=== PATIENT | male | born 1930 | race Caucasian/White ===

== ENCOUNTER 2018-04-13 15:01 | Observation (INO) ==
--- NOTE | 2018-04-13 15:12 | Emergency Department Note ---
Disposition Clinical Impression: Dementia, CHF exacerbation, Elevated troponin Disposition: Admitted As Inpatient Condition: Fair General Adult HPI - General Stated complaint: altered mental status Time Seen by Provider: 04/13/18 15:03 Source: family Mode of arrival: EMS Limitations: altered mental status Nursing Notes Reviewed: Yes Vital Signs Reviewed: Yes - History of Present Illness HPI Narrative: Patient presents with family members who say when he becomes agitated his oxygen level drops and he becomes combative. His pulse oximeter went down to 52 at home but if he stays calm his oxygen saturation is in the mid 90s. He was here 2 nights ago for similar complaint and sent home. According to the family thinks seem to be getting worse. The family gives no reports of fevers or chills nausea vomiting night sweats no specific shortness of breath. He has had a cough and a little bit of chest discomfort with his cough as of late. He is also bringing up some sputum as well it appears yellowish green Onset (ago): day(s) (several days) Location: other (altered mental status) Pain Severity: mild Quality: sharp (with cough) Consistency: intermittent Improves with: rest Worsens with: nothing Associated symptoms: Reports: denies other symptoms - Related Data Home Medications Medication Instructions Recorded Confirmed Cholecalciferol (D-3) [Vitamin D] 1,000 unit PO DAILY 02/26/17 04/13/18 Cyanocobalamin (B-12) [Vitamin B12] 1,000 mcg PO DAILY 02/26/17 04/13/18 Donepezil [Aricept] 5 mg PO DAILY 02/26/17 04/13/18 Albuterol Sulfate [Albuterol 2 puff IH QID PRN 09/28/17 04/13/18 Inhaler] Ipratropium/Albuterol Neb [Duoneb] 3 ml IH Q6HR PRN 03/18/18 04/13/18 Isosorbide MONOnitrate (24 HR) 30 mg PO DAILY 03/18/18 04/13/18 [Imdur] Melatonin [Melatin] 9 mg PO HS 03/18/18 04/13/18 Terazosin [Hytrin] 1 mg PO HS 03/18/18 04/13/18 Aspirin 325 mg PO DAILY 03/28/18 04/13/18 Previous Rx's Medication Instructions Recorded Budesonide/Formoterol 160/4.5 2 puff IH BIDR #1 inhaler 10/03/17 [Symbicort 160/4.5] Furosemide [Lasix] 20 mg PO BID 30 Days #60 tablet 03/24/18 Lisinopril [Zestril] 5 mg PO DAILY 30 Days #30 tablet 03/24/18 Metoprolol XL (24 HR) Succ [Toprol 50 mg PO DAILY 30 Days #30 03/24/18 Xl] tab.er.24h Cefdinir [Omnicef] 300 mg PO BID #16 capsule 04/04/18 Diltiazem CD (24hr) [Cardizem CD] 240 mg PO DAILY 30 Days #30 04/05/18 cap.er.24h Allergies Allergy/AdvReac Type Severity Reaction Status Date / Time No Known Allergies Allergy Verified 04/11/18 23:51 All systems ED: reviewed and negative except as stated. (per family) Review of Systems: As Per HPI Constitutional: Denies: fever, chills, weakness, weight change Eyes: Denies: eye pain, eye discharge, vision change ENT ED: Denies: ear pain, throat pain, dental pain, hearing loss, epistaxis, congestion, dysphagia Cardiovascular: Reports: as per HPI, chest pain (with cough). Denies: palpitations, dyspnea on exertion, edema, syncope Respiratory: Reports: as per HPI, cough. Denies: dyspnea, wheezes, hemoptysis, stridor Gastrointestinal: Denies: abdominal pain, nausea, vomiting, diarrhea, constipa tion, hematemesis, melena, hematochezia Genitourinary: Denies: urgency, dysuria, frequency, hematuria Musculoskeletal: Denies: back pain, neck pain, arthralgia, myalgia Integumentary: Denies: rash, abrasion, lesions Neurological: Denies: headache, weakness, numbness, paresthesias, confusion, abnormal gait, vertigo Psychiatric: Reports: as per HPI, anxiety. Denies: depression, suicidal thoughts, homicidal thoughts, auditory hallucinations, visual hallucinations Endocrine: Denies: fatigue Hematological/Lymphatic: Denies: easy bleeding, easy bruising Allergic/Immunologic: Denies: facial swelling, urticaria Past Medical History - Past Medical History Attestation: Yes The following information was validated with the patient. Source: patient, nursing notes reviewed Medical history: Reports: atrial fibrillation, CHF, CVA, dementia, hypertension Surgical history: Reports: no surgical history Psychiatric history: Reports: no psych history - Social History Smoking Status: Former smoker Smokeless Tobacco Status: No Alcohol use: Reports: none Drug use: Reports: none Physical Exam - General Limitations: no limitations General appearance: alert, in no apparent distress - Head Head exam: atraumatic, normocephalic, normal inspection - Eye Eye exam: Present: normal appearance, PERRL, EOMI - ENT ENT exam: normal exam, normal oropharynx, mucous membranes moist - Neck Neck exam: Present: normal inspection, full ROM, trachea midline - Chest Chest inspection: Present: normal inspection, symmetric chest wall rise - Respiratory Respiratory exam: Present: normal lung sounds bilaterally - Cardiovascular Cardiovascular exam: Present: regular rate, normal rhythm, normal heart sounds - Abdominal Exam Abdominal exam: Present: soft, Non-Tender. Absent: tenderness, distention, guarding, rebound, rigidity - Extremities Exam Extremities exam: Present: normal inspection, full ROM. Absent: tenderness, pedal edema - Back Exam Back exam: Present: normal inspection - Neurological Exam Neurological exam: Present: alert - Psychiatric Psychiatric exam: Present: normal affect, normal mood, agitated (at times) - Skin Skin exam: Present: warm, dry, intact Course Vital Signs Temperature 98.6 F 04/13/18 15:06 Pulse Rate 57 04/13/18 15:06 Respiratory Rate 18 04/13/18 15:06 Blood Pressure 84/52 04/13/18 15:06 O2 Sat by Pulse Oximetry 91 04/13/18 15:06 Temperature 98.6 F 04/13/18 15:06 Pulse Rate 57 04/13/18 15:06 Respiratory Rate 22 04/13/18 18:13 Blood Pressure 111/64 04/13/18 18:13 O2 Sat by Pulse Oximetry 91 04/13/18 15:06 Oxygen Delivery Oxygen Delivery Room Air Medical Decision Making - MDM Narrative Medical decision making narrative: I reviewed the patient's medication list Patient has mild CHF on his x-ray. His lactic acid is slightly possible I will not give him fluids because of his vascular congestion. Case was discussed with Dr. Shannon who is graciously accepted admission - Lab Data Lab results reviewed: Yes I reviewed the patient's lab results. Result diagrams: 04/13/18 16:20 04/13/18 16:20 Lab Results 04/13/18 04/13/18 04/13/18 Range/Units 16:20 16:20 16:20 WBC 6.4 (4.3-11.1) K/mcL RBC 3.62 L (4.19-5.50) M/mcL Hgb 10.8 L (12.9-16.9) g/dL Hct 36.6 L (37.5-50.1) % MCV 101.1 H (83.0-100.0) fL MCH 29.8 (28.0-33.3) pg MCHC 29.5 L (31.6-35.5) g/dL RDW 13.7 (11.5-14.5) % Plt Count 177 (140-400) K/mcL MPV 10.6 (9.4-12.4) fL Immature Gran % 0.8 (0-4) % Seg Neutrophils % 75.3 % Lymphocytes % 12.8 % Monocytes % 7.3 % Eosinophils % 3.3 % Basophils % 0.5 % Neutrophils # 4.8 (1.6-8.9) K/mcL Lymphocytes # 0.8 (0.6-4.6) K/mcL Monocytes # 0.5 (0.0-1.3) K/mcL Eosinophils # 0.2 (0.0-0.6) K/mcL Basophils # 0.0 (0.0-0.2) K/mcL Sodium 143 (136-145) mEq/L Potassium 4.4 (3.5-5.1) mEq/L Chloride 87 L (98-107) mEq/L Carbon Dioxide > 45 H* (23-29) mEq/L BUN 24 H (8-23) mg/dL Creatinine 0.95 (0.70-1.30) mg/dL Est GFR ( Amer) > 60 (> 60) Est GFR (Non-Af Amer) > 60 (> 60) BUN/Creatinine Ratio 25 (6-26) Glucose 104 (70-105) mg/dL Calculated Osmolality 300 (280-300) Lactic Acid 2.3 H (0.5-2.2) mmol/L Calcium 10.0 (8.6-10.3) mg/dL Total Bilirubin 0.7 (0.3-1.0) mg/dL AST 17 (13-39) Units/L ALT 19 (7-52) Units/L Alkaline Phosphatase 60 (34-104) Units/L Troponin I 0.24 H* (< 0.04) ng/mL Serum Total Protein 6.3 L (6.4-8.9) g/dL Albumin 3.8 (3.5-5.7) g/dL Globulin 2.5 (2.4-3.5) g/dL Albumin/Globulin Ratio 1.5 (1.1-2.2) Urine Color (Yellow) Urine Clarity (Clear) Urine pH (5.0-8.0) pH Units Ur Specific [place] (1.010-1.025) Urine Protein (Neg-Trace) mg/dL Urine Glucose (UA) (Normal) mg/dL Urine Ketones (Negative) mg/dL Urine Blood (Negative) Urine Nitrite (Negative) Urine Bilirubin (Negative) Urine Urobilinogen (Normal) mg/dL Ur Leukocyte Esterase (Negative) Urine Microscopic RBC (0-3) per hpf Urine Microscopic WBC (0-3) per hpf Urine Bacteria (None-Few) per hpf Ur Culture Indicated? (NO) 04/13/18 Range/Units 17:00 WBC (4.3-11.1) K/mcL RBC (4.19-5.50) M/mcL Hgb (12.9-16.9) g/dL Hct (37.5-50.1) % MCV (83.0-100.0) fL MCH (28.0-33.3) pg MCHC (31.6-35.5) g/dL RDW (11.5-14.5) % Plt Count (140-400) K/mcL MPV (9.4-12.4) fL Immature Gran % (0-4) % Seg Neutrophils % % Lymphocytes % % Monocytes % % Eosinophils % % Basophils % % Neutrophils # (1.6-8.9) K/mcL Lymphocytes # (0.6-4.6) K/mcL Monocytes # (0.0-1.3) K/mcL Eosinophils # (0.0-0.6) K/mcL Basophils # (0.0-0.2) K/mcL Sodium (136-145) mEq/L Potassium (3.5-5.1) mEq/L Chloride (98-107) mEq/L Carbon Dioxide (23-29) mEq/L BUN (8-23) mg/dL Creatinine (0.70-1.30) mg/dL Est GFR ( Amer) (> 60) Est GFR (Non-Af Amer) (> 60) BUN/Creatinine Ratio (6-26) Glucose (70-105) mg/dL Calculated Osmolality (280-300) Lactic Acid (0.5-2.2) mmol/L Calcium (8.6-10.3) mg/dL Total Bilirubin (0.3-1.0) mg/dL AST (13-39) Units/L ALT (7-52) Units/L Alkaline Phosphatase (34-104) Units/L Troponin I (< 0.04) ng/mL Serum Total Protein (6.4-8.9) g/dL Albumin (3.5-5.7) g/dL Globulin (2.4-3.5) g/dL Albumin/Globulin Ratio (1.1-2.2) Urine Color Yellow (Yellow) Urine Clarity Clear (Clear) Urine pH 7.5 (5.0-8.0) pH Units Ur Specific [place] 1.015 (1.010-1.025) Urine Protein Trace (Neg-Trace) mg/dL Urine Glucose (UA) Normal (Normal) mg/dL Urine Ketones Negative (Negative) mg/dL Urine Blood Negative (Negative) Urine Nitrite Negative (Negative) Urine Bilirubin Negative (Negative) Urine Urobilinogen Normal (Normal) mg/dL Ur Leukocyte Esterase Trace H (Negative) Urine Microscopic RBC 0-3 (0-3) per hpf Urine Microscopic WBC 0-3 (0-3) per hpf Urine Bacteria Few (None-Few) per hpf Ur Culture Indicated? YES A (NO) - Radiology Data Radiology results reviewed: Yes I reviewed the patient's radiology results. - EKG Data EKG #1 EKG attestation: Yes I reviewed and interpreted this EKG. EKG results narrative: EKG shows sinus bradycardia with a rate of 53 bpm right bundle-branch pattern VT interval is 181 ms. QRS duration 138 ms. QT interval 449 ms. QTc interval 433 ms. R axis of [address] elevation is appreciated
[2018-04-13 16:29] LABS: Basophils % 0.5 %; Eosinophils # 0.2 K/mcL (0.0-0.6); Eosinophils % 3.3 %; Hematocrit 36.6 % (37.5-50.1); Hemoglobin 10.8 g/dL (12.9-16.9); Immature Granulocytes % 0.8 % (0-4); Lymphocytes # 0.8 K/mcL (0.6-4.6); Lymphocytes % 12.8 %; Mean Corpuscular HGB Conc 29.5 g/dL (31.6-35.5); Mean Corpuscular Hemoglobin 29.8 pg (28.0-33.3); Mean Corpuscular Volume 101.1 fL (83.0-100.0); Mean Platelet Volume 10.6 fL (9.4-12.4); Monocytes # 0.5 K/mcL (0.0-1.3); Monocytes % 7.3 %; Neutrophils # 4.8 K/mcL (1.6-8.9); Platelet Count 177 K/mcL (140-400); Red Blood Count 3.62 M/mcL (4.19-5.50); Red Cell Distribution Width 13.7 % (11.5-14.5); Segmented Neutrophils % 75.3 %
[2018-04-13 16:59] LABS: Alanine Aminotransferase 19 Units/L (7-52); Albumin 3.8 g/dL (3.5-5.7); Albumin/Globulin Ratio 1.5 (1.1-2.2); Alkaline Phosphatase 60 Units/L (34-104); Aspartate Amino Transferase 17 Units/L (13-39); BUN/Creatinine Ratio 25 (6-26); Bilirubin,Total 0.7 mg/dL (0.3-1.0); Blood Urea Nitrogen 24 mg/dL (8-23); Chloride 87 mEq/L (98-107); Globulin 2.5 g/dL (2.4-3.5); Glucose 104 mg/dL (70-105); Osmolality,Calculated 300 (280-300); Potassium 4.4 mEq/L (3.5-5.1); Sodium 143 mEq/L (136-145); Total Protein 6.3 g/dL (6.4-8.9); Troponin I 0.24 ng/mL (< 0.04); eGFR For Non-African Americans > 60 (> 60)
[2018-04-13 17:06] LABS: Bilirubin,Urine Negative (Negative); Blood,Urine Negative (Negative); Clarity,Urine Clear (Clear); Color,Urine Yellow (Yellow); Glucose,Urine (UA) Normal (Normal); Ketones,Urine Negative (Negative); Leukocyte Esterase,Urine Trace (Negative); Nitrite,Urine Negative (Negative); PH,Urine 7.5 pH Units (5.0-8.0); Protein,Urine Trace mg/dL (Neg-Trace); Specific Gravity,Urine 1.015 (1.010-1.025); Urobilinogen,Urine Normal (Normal)
[2018-04-13 17:11] LABS: WBC,Urine 0-3 per hpf (0-3)
[2018-04-13 17:12] LABS: Bacteria,Urine Few per hpf (None-Few); RBC,Urine 0-3 per hpf (0-3)
[2018-04-13] MEDS ORDERED: Aspirin 81 MG TAB.CHEW PO STA (17:12)
[2018-04-13] MEDS ORDERED: Furosemide 20 MG/2 ML VIAL IVP ONE (17:26)
[2018-04-13] MEDS ORDERED: *HR* LORazepam 0.5 MG TABLET PO ONE (17:49)
[2018-04-13] MEDS ORDERED: *HR* LORazepam 0.5 MG TABLET ONE (17:55)
[2018-04-13] MEDS ORDERED: Naloxone 0.4 MG/ML INJ IVP PRN (18:55)
[2018-04-13] MEDS ORDERED: Ipratropium/Albuterol Neb 3 ML IH PRN (18:55)
[2018-04-13] MEDS ORDERED: Cefdinir 300 MG CAPSULE PO SCH (21:00)
[2018-04-13] MEDS ORDERED: Furosemide 20 MG TABLET PO SCH (21:00)
[2018-04-13] MEDS ORDERED: Melatonin 3 MG TABLET PO SCH (21:00)
[2018-04-13] MEDS: Budesonide/Formoterol 160/4.5 1 PUFF INH IH SCH (23:20)
[2018-04-14 05:47] LABS: Basophils % 0.5 %; Eosinophils # 0.3 K/mcL (0.0-0.6); Eosinophils % 4.5 %; Hematocrit 31.7 % (37.5-50.1); Hemoglobin 9.5 g/dL (12.9-16.9); Immature Granulocytes % 0.5 % (0-4); Lymphocytes # 0.9 K/mcL (0.6-4.6); Lymphocytes % 15.8 %; Mean Corpuscular Hemoglobin 29.7 pg (28.0-33.3); Mean Corpuscular Volume 99.1 fL (83.0-100.0); Mean Platelet Volume 11.4 fL (9.4-12.4); Monocytes # 0.4 K/mcL (0.0-1.3); Monocytes % 7.9 %; Neutrophils # 3.9 K/mcL (1.6-8.9); Platelet Count 148 K/mcL (140-400); Red Cell Distribution Width 13.7 % (11.5-14.5); Segmented Neutrophils % 70.8 %
[2018-04-14 06:17] LABS: BUN/Creatinine Ratio 27 (6-26); Blood Urea Nitrogen 25 mg/dL (8-23); Calcium 9.1 mg/dL (8.6-10.3); Carbon Dioxide 43 mEq/L (23-29); Chloride 89 mEq/L (98-107); Glucose 107 mg/dL (70-105); Osmolality,Calculated 291 (280-300); Potassium 4.3 mEq/L (3.5-5.1); Sodium 138 mEq/L (136-145); eGFR For Non-African Americans > 60 (> 60)
[2018-04-14 08:58] LABS: Carbon Dioxide > 45 mEq/L (23-29)
[2018-04-14] MEDS ORDERED: Cholecalciferol (D-3) 1,000 UNIT TABLET PO SCH (09:00)
[2018-04-14] MEDS ORDERED: Diltiazem CD (24hr) 240 MG CAPSULE PO SCH (09:00)
[2018-04-14] MEDS ORDERED: Cyanocobalamin (B-12) 1,000 MCG TABLET PO SCH (09:00)
[2018-04-14] MEDS ORDERED: Isosorbide MONOnitrate (24 HR) 30 MG TAB.ER.24H PO SCH (09:00)
[2018-04-14] MEDS ORDERED: Aspirin 325 MG TABLET PO SCH (09:00)
[2018-04-14] MEDS ORDERED: Metoprolol XL (24 HR) Succ 50 MG TAB.ER.24H PO SCH (09:00)
[2018-04-14 11:02] VITALS: BP 135/54
[2018-04-14] MEDS: Budesonide/Formoterol 160/4.5 1 PUFF INH IH SCH (11:14)
--- NOTE | 2018-04-14 11:57 | Physician Discharge Referral ---
Addendum entered and electronically signed by Marlon Shannon MD 04/14/18 12:16: Addendum entered and electronically signed by Kaleigh Schulz APN 04/14/18 12:06: CHF- refer to hospice, continue home meds. 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 For more information, call the [place] Tobacco Quit Line at 9-987-HNDC-NOW. - Diet/Nutrition Diet/Nutrition Orders: Regular - Activity Activity Orders: Bedrest - Services Needed Following services are medically necessary services: Nursing - Transfer Medications Home Medications: Cholecalciferol (D-3) [Vitamin D] 1,000 unit PO DAILY 02/26/17 [History] Cyanocobalamin (B-12) [Vitamin B12] 1,000 mcg PO DAILY 02/26/17 [History] Donepezil [Aricept] 5 mg PO DAILY 02/26/17 [History] Albuterol Sulfate [Albuterol Inhaler] 2 puff IH QID PRN 09/28/17 [History] Budesonide/Formoterol 160/4.5 [Symbicort 160/4.5] 2 puff IH BIDR #1 inhaler 10/03/17 [Rx] Ipratropium/Albuterol Neb [Duoneb] 3 ml IH Q6HR PRN 03/18/18 [History] Isosorbide MONOnitrate (24 HR) [Imdur] 30 mg PO DAILY 03/18/18 [History] Melatonin [Melatin] 9 mg PO HS 03/18/18 [History] Terazosin [Hytrin] 1 mg PO HS 03/18/18 [History] Furosemide [Lasix] 20 mg PO BID 30 Days #60 tablet 03/24/18 [Rx] Lisinopril [Zestril] 5 mg PO DAILY 30 Days #30 tablet 03/24/18 [Rx] Metoprolol XL (24 HR) Succ [Toprol Xl] 50 mg PO DAILY 30 Days #30 tab.er.24h 03/24/18 [Rx] Aspirin 325 mg PO DAILY 03/28/18 [History] Cefdinir [Omnicef] 300 mg PO BID #16 capsule 04/04/18 [Rx] Diltiazem CD (24hr) [Cardizem CD] 240 mg PO DAILY 30 Days #30 cap.er.24h 04/05/18 [Rx] Allergies/Adverse Reactions: Allergy/AdvReac Type Severity Reaction Status Date / Time No Known Allergies Allergy Verified 04/11/18 23:51 Certification: Further, I certify that my clinical findings support that this patient is homebound (i.e. absences from home require considerable and taxing effort and are for medical reasons or mandaeism services or infrequently or short duration when for other reasons) because: Homebound Reason: Patient requires assistance of a person or device to safely leave home, Leaving home requires considerable and taxing effort due to condition, Altered mental status requiring supervision when leaving home Attestation: My signature below is to certify that this patient is under my care and that I, or nurse practitioner, or a physician's psychiatric assistant working with me, has a [id number] encounter with this patient.
--- NOTE | 2018-04-14 12:00 | Internal Med History&Physical ---
Date of Encounter: 04/14/18 Time of Encounter: 11:55 Assessment and Plan (1) Acute and chronic respiratory failure with hypercapnia Current visit: No Status: Acute This is ongoing and at his baseline. Ativan will be used in low dose, given his referral to hospice. He was admitted with a diagnosis of heart failure but multiple attempts to enter will not allow this in the document because of the computer system I do not feel that he is any worse heart failure situation then during his last admission, anyway, and suspect that this is related to his not taking his home medications. We will try to optimize home meds with liquids which he will take. (2) Anxiety Current visit: No Status: Acute It is hard to say whether or not this is a primary problem or if somehow pain induced as he is unable to localize. (3) GERD (gastroesophageal reflux disease) Current visit: No Status: Chronic Qualifiers: Esophagitis presence: esophagitis presence not specified Qualified Code(s): K21.9 - Gastro-esophageal reflux disease without esophagitis (4) Dementia Current visit: No Status: Chronic Chronic and end-stage. Qualifiers: Dementia type: Alzheimer's disease Alzheimer's disease onset: unspecified onset Dementia behavioral disturbance: without behavioral disturbance Qualified Code(s): G30.9 - Alzheimer's disease, unspecified; F02.80 - Dementia in other diseases classified elsewhere without behavioral disturbance (5) Hypertension Current visit: No Status: Chronic Actually on multiple medications has been relatively hypotensive. Qualifiers: Hypertension type: essential hypertension Qualified Code(s): I10 - Essential (primary) hypertension (6) BPH (benign prostatic hyperplasia) Current visit: No Status: Chronic Apparently, stable. Qualifiers: Lower urinary tract symptom presence: unspecified whether lower urinary tract symptoms present Qualified Code(s): N40.0 - Benign prostatic hyperplasia without lower urinary tract symptoms (7) UTI (urinary tract infection) Current visit: No Status: Acute Urine culture has been sent but results are pending. Qualifiers: Urinary tract infection type: site unspecified Hematuria presence: without hematuria Qualified Code(s): N39.0 - Urinary tract infection, site not specified Internal Medicine - H&P: HPI Chief complaint: Mental status change; heart failure Admitted From: Home Plans for Post Hospital Care: Hospice - Medical Facility History of present illness: Mr. Pack is a 88 year old male known to me who was having difficulty with agitation and breathing. Because of ongoing cough and refusing to take medicines, he was brought for the second time in 3 days to the emergency room. They admitted him with a diagnosis of congestive heart failure but he has multiple problems as documented before during his last admission. Family wants to keep him at hospice but there is some disagreement among his sisters. I spoke with Shwetha Pack and granddaughter Mone Pack, who both 1want him to be on hospice. The patient lives with them and they are primary caregivers. They have spoken with palliative nurse at [facility] and with home health care about switching him to hospice. 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 They agree with making him a DO NOT INTUBATE, no arrest and DNR CC only. Since he has been here he has complained of pain but is not able to localize, is not able to respond to questions about his recent past, etc. He is oriented 1 (self), only. I was able to speak with social service who will arrange hospice and can have this set up, today. Nursing notes that he desaturates frequently and that they must get saturation centrally, on his forehead, because of peripheral hypoperfusion. Past Med Surg Social Fam HX - Past Medical History Source: old records reviewed Medical history: atrial fibrillation, CHF, CVA, dementia, hypertension Psychiatric history: no psych history - Past Surgical History Surgical History: no surgical history - Social History Smoking Status: Former smoker Smokeless Tobacco Status: No Alcohol use: none Drug use: none - Family History Mother Hx Family Cancer: Yes Internal Medicine - H&P: Meds Cholecalciferol (D-3) [Vitamin D] 1,000 unit PO DAILY 02/26/17 [History] Cyanocobalamin (B-12) [Vitamin B12] 1,000 mcg PO DAILY 02/26/17 [History] Donepezil [Aricept] 5 mg PO DAILY 02/26/17 [History] Albuterol Sulfate [Albuterol Inhaler] 2 puff IH QID PRN 09/28/17 [History] Budesonide/Formoterol 160/4.5 [Symbicort 160/4.5] 2 puff IH BIDR #1 inhaler 10/03/17 [Rx] Ipratropium/Albuterol Neb [Duoneb] 3 ml IH Q6HR PRN 03/18/18 [History] Isosorbide MONOnitrate (24 HR) [Imdur] 30 mg PO DAILY 03/18/18 [History] Melatonin [Melatin] 9 mg PO HS 03/18/18 [History] Terazosin [Hytrin] 1 mg PO HS 03/18/18 [History] Furosemide [Lasix] 20 mg PO BID 30 Days #60 tablet 03/24/18 [Rx] Lisinopril [Zestril] 5 mg PO DAILY 30 Days #30 tablet 03/24/18 [Rx] Metoprolol XL (24 HR) Succ [Toprol Xl] 50 mg PO DAILY 30 Days #30 tab.er.24h 03/24/18 [Rx] Aspirin 325 mg PO DAILY 03/28/18 [History] Cefdinir [Omnicef] 300 mg PO BID #16 capsule 04/04/18 [Rx] Diltiazem CD (24hr) [Cardizem CD] 240 mg PO DAILY 30 Days #30 cap.er.24h 04/05/18 [Rx] Allergy/AdvReac Type Severity Reaction Status Date / Time No Known Allergies Allergy Verified 04/11/18 23:51 All Systems PM: A 10-system review of systems was performed and is negative for pertinent findings except as documented above in the HPI. Review of systems: Not obtainable, because of his disorientation. - Constitutional Vitals: Temp Pulse Resp BP Pulse Ox 97.4 F L 88 40 135/54 88 04/14/18 10:59 04/14/18 10:59 04/14/18 10:59 04/14/18 10:59 04/14/18 10:59 Exam: Examination: (Except as mentioned above): General: In no apparent distress, obtunded and oriented 1, as above. Head: Atraumatic and normocephalic. Eyes: Extraocular muscles are intact, pupils equal round and reactive to light and accommodation. Sclerae anicteric. Ears: External ears are normal to inspection and hearing is grossly normal. Nose: Patent without lesion noted. Mouth: No intraoral lesions seen. Dentition is unremarkable. Neck: Supple with trachea midline. There is no thyromegaly or adenopathy and carotids are 2+ without bruit heard. Respiratory: No use of accessory muscles. Lungs have sonorous rhonchi and upper airway sounds, throughout. Normal airflow. Cardiovascular: Distant but irregularly irregular consistent with atrial fibrillation at a high rate. Abdomen: Bowel sounds are normal. No hepatosplenomegaly masses or tenderness. Extremities: No cyanosis clubbing or edema. He is slightly mottled in his feet but hands seem to be okay. Neurological: A and O 1. Cranial nerves II through XII are intact. No focal deficits and no abnormal movements or postures. Skin: Warm and non-diaphoretic with no lesions noted. Breasts, pelvic and rectal: Not examined. Internal Med - H&P Results - Labs CBC & Chem 7: 04/14/18 05:40 04/14/18 05:40 Labs: Short CBC 04/13/18 04/14/18 Range/Units 16:20 05:40 WBC 6.4 5.6 (4.3-11.1) K/mcL Hgb 10.8 L 9.5 L (12.9-16.9) g/dL Hct 36.6 L 31.7 L (37.5-50.1) % Plt Count 177 148 (140-400) K/mcL Neutrophils # 4.8 3.9 (1.6-8.9) K/mcL BMP 04/13/18 04/14/18 16:20 05:40 Sodium 143 138 Potassium 4.4 4.3 Chloride 87 L 89 L Carbon Dioxide > 45 H* 43 H* BUN 24 H 25 H Creatinine 0.95 0.94 Glucose 104 107 H Calcium 10.0 9.1 Cardiac Enzymes 04/13/18 04/14/18 Range/Units 16:20 00:48 Troponin I 0.24 H* 0.24 H* (< 0.04) ng/mL Liver Function 04/13/18 Range/Units 16:20 Total Bilirubin 0.7 (0.3-1.0) mg/dL AST 17 (13-39) Units/L ALT 19 (7-52) Units/L Alkaline Phosphatase 60 (34-104) Units/L Albumin 3.8 (3.5-5.7) g/dL Urine 04/13/18 Range/Units 17:00 Urine Color Yellow (Yellow) Urine Clarity Clear (Clear) Urine pH 7.5 (5.0-8.0) pH Units Ur Specific [place] 1.015 (1.010-1.025) Urine Protein Trace (Neg-Trace) mg/dL Urine Glucose (UA) Normal (Normal) mg/dL - Impressions ITS Impressions Chest X-Ray 04/13/18 15:09 IMPRESSION: Stable examination. Findings suggest edema and bilateral pleural effusions. Correlate clinical assessment. D/ / 04/13/2018 15:56:19 Benoit Yoon MD / stephanie Interpreting Provider: Benoit Yoon MD Head CT 04/13/18 15:09 IMPRESSION: No acute intracranial abnormality. D/ / Carlos Enrique Aggarwal MD / Carlos Enrique Aggarwal MD Interpreting Provider: Carlos Enrique Aggarwal MD Chest X-Ray 04/14/18 07:00 IMPRESSION: 1. No significant interval change of cardiomegaly with moderate to severe congestive heart failure. D/ / 04/14/2018 07:43:50 Juany Espinoza MD / timo Interpreting Provider: Juany Espinoza MD
--- NOTE | 2018-04-14 12:18 | Discharge Summary ---
Addendum entered and electronically signed by Marlon Shannon MD 04/14/18 13:53: I have personally performed a face to face evaluation on this patient. I have r eviewed and agree with the care plan. History and Exam by me shows: Nursing notes that patient complained of chest pain and I will prescribe morphine but his daughter, Meme, did not want him to have this. When I went into room 2 check on him, he totally denies chest pain or any pain. I spoke at length with Meme who states that I am simply interested in money and cannot answer her questions to her satisfaction. I told her that he did have mildly elevated troponins so I am not sure whether this represents a heart attack or whether this is chronic from his heart failure and COPD. She would like him to have catheterization and other evaluations. I told her that I had spoken at length to other family members including caregivers previously noted. When I told her I felt it would be mean to treat her father in the way she was asking she became angry and stated she would make sure that he got care from her and was taken to [facility] or some other hospital for care. I told her that was the right of her privilege but that other family members had to say, as well. I will also add that she was very belittling to the medical care that I was giving patient and insisted that he knew where he was, etc. I went and interviewed patient and he again did not know situation, location, or time. He knew who he was and had memory of family in terms of address which is more alert than he has been but still had poor insight and was disoriented 2 or 3, only oriented to person. Upon leaving the room, Meme again angrily states, "He knows exactly where he is." Original Note: Orders not resulted at time of discharge: Pending orders 04/13/18 16:20 Culture,Blood [BC] Stat 04/13/18 17:00 Culture,Urine [RM] Urgent Date of Encounter: 04/14/18 Time of Encounter: 12:16 - Discharge Diagnosis (1) Altered mental status Priority: Primary Status: Acute Comments: discharge to hospice Qualifiers: Altered mental status type: unspecified Qualified Code(s): R41.82 - Altered mental status, unspecified (2) CHF exacerbation Priority: Primary Status: Acute Comments: discharge to hospice. continue home meds. Qualifiers: Heart failure type: combined systolic and diastolic Qualified Code(s): I50.43 - Acute on chronic combined systolic (congestive) and diastolic (congestive) heart failure Hospital course: Mr. Pack is a 88 year old male here with acute on chronic CHF and mental status change. family agreeable to discharge to hospice care. Discharge discussed with: patient, family, nurse, social work - Time Spent with Patient Total time spent providing and/or coordinating discharge services: Less than 30 minutes - Discharge Medications Home Medications: Cholecalciferol (D-3) [Vitamin D] 1,000 unit PO DAILY 02/26/17 [History] Cyanocobalamin (B-12) [Vitamin B12] 1,000 mcg PO DAILY 02/26/17 [History] Donepezil [Aricept] 5 mg PO DAILY 02/26/17 [History] Albuterol Sulfate [Albuterol Inhaler] 2 puff IH QID PRN 09/28/17 [History] Budesonide/Formoterol 160/4.5 [Symbicort 160/4.5] 2 puff IH BIDR #1 inhaler 10/03/17 [Rx] Ipratropium/Albuterol Neb [Duoneb] 3 ml IH Q6HR PRN 03/18/18 [History] Isosorbide MONOnitrate (24 HR) [Imdur] 30 mg PO DAILY 03/18/18 [History] Melatonin [Melatin] 9 mg PO HS 03/18/18 [History] Terazosin [Hytrin] 1 mg PO HS 03/18/18 [History] Furosemide [Lasix] 20 mg PO BID 30 Days #60 tablet 03/24/18 [Rx] Lisinopril [Zestril] 5 mg PO DAILY 30 Days #30 tablet 03/24/18 [Rx] Metoprolol XL (24 HR) Succ [Toprol Xl] 50 mg PO DAILY 30 Days #30 tab.er.24h 03/24/18 [Rx] Aspirin 325 mg PO DAILY 03/28/18 [History] Cefdinir [Omnicef] 300 mg PO BID #16 capsule 04/04/18 [Rx] Diltiazem CD (24hr) [Cardizem CD] 240 mg PO DAILY 30 Days #30 cap.er.24h 04/05/18 [Rx] LORazepam Oral Conc [Ativan Oral Conc] 0.5 mg PO Q4HR PRN 5 Days #30 mls 04/14/18 [Rx] Allergies/Adverse Reactions: Allergy/AdvReac Type Severity Reaction Status Date / Time No Known Allergies Allergy Verified 04/11/18 23:51 Date of admission: 04/13/18 17:36 [facility] Discharging clinician: Marlon Shannon Anticipated date of discharge: 04/14/18 - Constitutional Vitals: see exam on H&P dated on this date. Temp Pulse Resp BP Pulse Ox 97.4 F L 88 40 135/54 88 04/14/18 10:59 04/14/18 10:59 04/14/18 10:59 04/14/18 10:59 04/14/18 10:59 - Patient Status Disposition: Hospice - Home Condition: Critical Overall status at discharge: patient is not back to baseline - Discharge Instructions Forms: ED Satisfaction Letter - Diet and Activity Activity: other Diet: other
[2018-04-14] MEDS ORDERED: Nitroglycerin 0.4 MG TAB.SUBL SL PRN (13:44)
--- NOTE | 2018-04-14 14:03 | Electrocardiograph Report ---
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
--- NOTE | 2018-04-14 14:19 | Electrocardiograph Report ---
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
== END 2018-04-14 15:20 | disposition hospice, home (50) ==
LOC: EMEROOGRE 15:01 → INPGRE 15:01